=== PATIENT | male | born 1960 | race Hispanic/Latino ===

== ENCOUNTER 2024-03-09 17:07 | Inpatient (IN) | payer BC ==
[~2024-03-09] VITALS: Ht 175.3 cm; Wt 117.9 kg
[~2024-03-09 17:07] MED LIST: ATORVASTATIN CA20 MG PO; B-121000 MC2; GLIPIZIDE ER5 MG PO; LISINOPRIL10 MG PO; MOUNJARO5 MG/0.5 M SQ; ONE DAILY MEN'1 EACH; TURMERIC CURCU1 EACH; VITAMIN E1000 UNI1
[2024-03-09 17:34] VITALS: PULSE 87; RESP 19; TEMP 103
[2024-03-09 18:11] LABS: BASOPHILS # (AUTO) 0.1 (0.0-0.1); BASOPHILS % 0.3 % (0.0-1.0); EOSINOPHILS # (AUTO) 0.1 (0.0-0.4); EOSINOPHILS % 0.3 % (0.0-6.0); HEMATOCRIT 35.1 % (38.2-49.6); HEMOGLOBIN 11.3 g/dL (14.0-18.0); LYMPHOCYTES # (AUTO) 0.7 (1.0-3.2); LYMPHOCYTES % 4.4 % (18.0-39.1); MEAN CORPUSCULAR HGB CONC 32.2 g/dL (31-35); MEAN CORPUSCULAR VOLUME 90.2 fL (81-99); MONOCYTES # (AUTO) 1.3 (0.2-0.8); MONOCYTES % 7.8 % (4.4-11.3); NEUTROPHILS # (AUTO) 14.2 (2.1-6.9); NEUTROPHILS % 86.8 % (38.7-80.0); PLATELET COUNT 258 x10e3/uL (140-360); RED BLOOD COUNT 3.89 x10e6/uL (4.3-5.7); WHITE BLOOD COUNT 16.38 x10e3/uL (4.8-10.8)
[2024-03-09 18:29] LABS: ALBUMIN 2.5 g/dL (3.5-5.0); ALBUMIN/GLOBULIN RATIO 0.5 (0.8-2.0); ANION GAP 14.3 mmol/L (8-16); BILIRUBIN,TOTAL 0.6 mg/dL (0.2-1.2); CREATININE, SERUM 1.46 mg/dL (0.72-1.25); POTASSIUM 4.3 mmol/L (3.5-5.1); TOTAL PROTEIN 7.3 g/dL (6.5-8.1)
[2024-03-09] MEDS ORDERED: PIPERACILLIN/TAZOBACTAM 3.375 GM VIAL ONE (18:31)
[2024-03-09] MEDS: Vancomycin IV 1 GM in SODIUM CHLORIDE 0.9% 250ML 250 ML IV SCH (18:39)
[2024-03-09] MEDS: SODIUM CHLORIDE 0.9% 1000ML 1,000 ML IV ONE ×2 (18:39→20:44)
[2024-03-09] MEDS: ACETAMINOPHEN 325 MG TAB PO ONE (18:40)
[2024-03-09] MEDS ORDERED: DEXTROSE 50% SYRINGE 50 ML IV PRN (18:45)
[2024-03-09] MEDS ORDERED: Morphine 4mg INJECTION 4 MG/ML INJ IV PRN (18:45)
[2024-03-09] MEDS ORDERED: ONDANSETRON HCL INJ 2MG/ML 2ML 2 MG/ML VIAL IV PRN (18:45)
[2024-03-09 20:03] VITALS: BP 129/64; PULSE 75; RESP 19; TEMP 98.1; O2SAT 96
[2024-03-09 20:05] VITALS: PULSE 76; RESP 18; O2SAT 99
[2024-03-09 21:00] VITALS: BP_SYST 109; BP_SYST 129; BP_DIAS 64; BP_DIAS 75; PULSE 76; RESP 19; TEMP 100.8; TEMP 98.1; O2SAT 99
[2024-03-09] MEDS: INSULIN REGULAR, HUMAN 100 UNIT/1 ML SQ SCH (21:00)
[2024-03-10] VITALS (8 sets, daily range): BP systolic 124–172; BP diastolic 74–85; PULSE 71–80; RESP 17–18; TEMP 97.5–98.8; O2SAT 96–100
[2024-03-10 05:47] LABS: BASOPHILS # (AUTO) 0.1 (0.0-0.1); BASOPHILS % 0.5 % (0.0-1.0); EOSINOPHILS # (AUTO) 0.4 (0.0-0.4); EOSINOPHILS % 2.5 % (0.0-6.0); HEMATOCRIT 32.3 % (38.2-49.6); HEMOGLOBIN 10.6 g/dL (14.0-18.0); LYMPHOCYTES # (AUTO) 1.4 (1.0-3.2); LYMPHOCYTES % 8.8 % (18.0-39.1); MEAN CORPUSCULAR HEMOGLOBIN 28.8 pg (28-32); MEAN CORPUSCULAR HGB CONC 32.8 g/dL (31-35); MEAN CORPUSCULAR VOLUME 87.8 fL (81-99); MONOCYTES # (AUTO) 1.4 (0.2-0.8); MONOCYTES % 8.5 % (4.4-11.3); NEUTROPHILS # (AUTO) 12.7 (2.1-6.9); NEUTROPHILS % 79.2 % (38.7-80.0); PLATELET COUNT 267 x10e3/uL (140-360); RED BLOOD COUNT 3.68 x10e6/uL (4.3-5.7); WHITE BLOOD COUNT 16.08 x10e3/uL (4.8-10.8)
[2024-03-10 06:17] LABS: ALBUMIN 2.3 g/dL (3.5-5.0); ALBUMIN/GLOBULIN RATIO 0.5 (0.8-2.0); ANION GAP 11.9 mmol/L (8-16); BILIRUBIN,TOTAL 0.6 mg/dL (0.2-1.2); CALCIUM 8.7 mg/dL (8.4-10.2); CREATININE, SERUM 1.25 mg/dL (0.72-1.25); POTASSIUM 3.9 mmol/L (3.5-5.1); TOTAL PROTEIN 6.8 g/dL (6.5-8.1)
[2024-03-10] MEDS: ACETAMINOPHEN 325 MG TAB PO PRN (06:18)
[2024-03-10 06:24] LABS: BILIRUBIN,URINE NEGATIVE (NEGATIVE); CLARITY,URINE CLOUDY (CLEAR); COLOR,URINE YELLOW (YELLOW); GLUCOSE, URINE NEGATIVE (NEGATIVE); KETONES,URINE NEGATIVE (NEGATIVE); LEUKOCYTE ESTERASE ,URINE NEGATIVE (NEGATIVE); NITRITE,URINE NEGATIVE (NEGATIVE); PH,URINE 5.5 (5 - 7); PROTEIN,URINE DIPSTICK >=300 (NEGATIVE); URINE UROBILINOGEN 0.2 mg/dL (0.2 - 1)
[2024-03-10 06:47] LABS: BACTERIA,URINE MODERATE /HPF; EPITHELIAL CELLS,URINE RARE /LPF; RBC,URINE 0-5 /HPF (0-5)
[2024-03-10 11:01] LABS: CHOL/HDL RATIO 4.5 (3.9-4.7)
[2024-03-10 11:27] LABS: FERRITIN 1314.45 ng/mL (21.81-274.66)
[2024-03-10 11:51] LABS: FOLATE 14.2 ng/mL (7.0-15.4)
[2024-03-10] MEDS: ATORVASTATIN 40 MG TAB PO SCH (21:12)
[2024-03-11] VITALS (8 sets, daily range): BP systolic 146–171; BP diastolic 77–82; PULSE 66–80; RESP 17–21; TEMP 97.8–98.4; O2SAT 98–100
[2024-03-11 05:46] LABS: BASOPHILS # (AUTO) 0.1 (0.0-0.1); BASOPHILS % 0.6 % (0.0-1.0); EOSINOPHILS # (AUTO) 0.5 (0.0-0.4); EOSINOPHILS % 4.4 % (0.0-6.0); HEMATOCRIT 30.3 % (38.2-49.6); LYMPHOCYTES # (AUTO) 1.1 (1.0-3.2); LYMPHOCYTES % 10.6 % (18.0-39.1); MEAN CORPUSCULAR HEMOGLOBIN 28.7 pg (28-32); MEAN CORPUSCULAR VOLUME 86.8 fL (81-99); MONOCYTES # (AUTO) 0.8 (0.2-0.8); MONOCYTES % 7.2 % (4.4-11.3); NEUTROPHILS # (AUTO) 8.2 (2.1-6.9); NEUTROPHILS % 76.5 % (38.7-80.0); PLATELET COUNT 252 x10e3/uL (140-360); RED BLOOD COUNT 3.49 x10e6/uL (4.3-5.7); RED CELL DISTRIBUTION WIDTH 12.1 % (11.7-14.4); WHITE BLOOD COUNT 10.69 x10e3/uL (4.8-10.8)
[2024-03-11 06:18] LABS: ALBUMIN/GLOBULIN RATIO 0.5 (0.8-2.0); ANION GAP 12.9 mmol/L (8-16); BILIRUBIN,TOTAL 0.5 mg/dL (0.2-1.2); CALCIUM 8.4 mg/dL (8.4-10.2); CREATININE, SERUM 1.24 mg/dL (0.72-1.25); POTASSIUM 3.9 mmol/L (3.5-5.1); TOTAL PROTEIN 6.2 g/dL (6.5-8.1)
[2024-03-11 06:36] LABS: CHOL/HDL RATIO 5.2 (3.9-4.7)
[2024-03-11 06:56] LABS: THYROID STIMULATING HORMONE 0.766 uIU/mL (0.350-4.940)
[2024-03-11] MEDS: LISINOPRIL 20 MG TAB PO SCH (08:05)
[2024-03-11] MEDS: ASPIRIN 81 MG ENTERIC COATED PO ONE (09:38)
[2024-03-11] MEDS: ENOXAPARIN SOD INJ 40 MG/0.4 ML SYR SC SCH (16:53)
[2024-03-11] MEDS ORDERED: Vancomycin IV 1 GM in SODIUM CHLORIDE 0.9% 250ML 250 ML IV SCH (20:00)
[2024-03-12 00:18] VITALS: BP 175/84; PULSE 73; RESP 18; TEMP 98.2; O2SAT 100
[2024-03-12] MEDS: HYDRALAZINE HCL 20 MG/ML VIAL IV PRN (01:10)
[2024-03-12 04:00] VITALS: BP 162/75; PULSE 76; RESP 18; TEMP 97.8; O2SAT 100
[2024-03-12 05:38] LABS: BASOPHILS # (AUTO) 0.1 (0.0-0.1); BASOPHILS % 0.8 % (0.0-1.0); EOSINOPHILS # (AUTO) 0.6 (0.0-0.4); EOSINOPHILS % 6.3 % (0.0-6.0); HEMATOCRIT 30.2 % (38.2-49.6); HEMOGLOBIN 9.9 g/dL (14.0-18.0); LYMPHOCYTES # (AUTO) 1.5 (1.0-3.2); LYMPHOCYTES % 16.1 % (18.0-39.1); MEAN CORPUSCULAR HEMOGLOBIN 28.4 pg (28-32); MEAN CORPUSCULAR HGB CONC 32.8 g/dL (31-35); MEAN CORPUSCULAR VOLUME 86.8 fL (81-99); MONOCYTES # (AUTO) 0.6 (0.2-0.8); MONOCYTES % 6.8 % (4.4-11.3); NEUTROPHILS # (AUTO) 6.3 (2.1-6.9); NEUTROPHILS % 69.2 % (38.7-80.0); PLATELET COUNT 279 x10e3/uL (140-360); RED BLOOD COUNT 3.48 x10e6/uL (4.3-5.7); RED CELL DISTRIBUTION WIDTH 12.2 % (11.7-14.4); WHITE BLOOD COUNT 9.14 x10e3/uL (4.8-10.8)
[2024-03-12 05:57] LABS: ANION GAP 14.8 mmol/L (8-16); CALCIUM 8.6 mg/dL (8.4-10.2); CREATININE, SERUM 1.22 mg/dL (0.72-1.25); POTASSIUM 3.8 mmol/L (3.5-5.1)
[2024-03-12 08:18] VITALS: BP 164/87; PULSE 66; RESP 20; TEMP 98.1; O2SAT 100
[2024-03-12] MEDS ORDERED: IOPAMIDOL 370 MG/ML 100 ML INFUS..BTL INJ ONE (10:49)
[2024-03-12] MEDS ORDERED: SODIUM CHLORIDE 0.9% 100 ML ONE (10:49)
[2024-03-12] MEDS: SODIUM CHLORIDE 0.9% 1000ML 1,000 ML IV SCH (16:23)
[2024-03-12 17:23] VITALS: BP 169/76; PULSE 68; RESP 18; TEMP 97.6; O2SAT 98
[2024-03-12 19:42] VITALS: BP 177/76; PULSE 71; RESP 18; TEMP 98.6; O2SAT 99
[2024-03-12 21:00] VITALS: BP 177/76; PULSE 71; RESP 18; TEMP 98.6; O2SAT 99
[2024-03-13] VITALS (7 sets, daily range): BP systolic 139–197; BP diastolic 78–88; PULSE 62–77; RESP 18–20; TEMP 98.1–99; O2SAT 99–100
[2024-03-13 06:51] LABS: BASOPHILS # (AUTO) 0.1 (0.0-0.1); BASOPHILS % 0.7 % (0.0-1.0); EOSINOPHILS # (AUTO) 0.4 (0.0-0.4); EOSINOPHILS % 4.9 % (0.0-6.0); HEMATOCRIT 31.5 % (38.2-49.6); HEMOGLOBIN 10.5 g/dL (14.0-18.0); LYMPHOCYTES # (AUTO) 1.6 (1.0-3.2); LYMPHOCYTES % 19.5 % (18.0-39.1); MEAN CORPUSCULAR HEMOGLOBIN 29.1 pg (28-32); MEAN CORPUSCULAR HGB CONC 33.3 g/dL (31-35); MEAN CORPUSCULAR VOLUME 87.3 fL (81-99); MONOCYTES # (AUTO) 0.6 (0.2-0.8); MONOCYTES % 7.1 % (4.4-11.3); NEUTROPHILS # (AUTO) 5.5 (2.1-6.9); NEUTROPHILS % 66.7 % (38.7-80.0); PLATELET COUNT 332 x10e3/uL (140-360); RED BLOOD COUNT 3.61 x10e6/uL (4.3-5.7); RED CELL DISTRIBUTION WIDTH 12.2 % (11.7-14.4); WHITE BLOOD COUNT 8.22 x10e3/uL (4.8-10.8)
[2024-03-13 07:04] LABS: ALBUMIN 2.3 g/dL (3.5-5.0); ALBUMIN/GLOBULIN RATIO 0.5 (0.8-2.0); ANION GAP 12.2 mmol/L (8-16); BILIRUBIN,TOTAL 0.3 mg/dL (0.2-1.2); CALCIUM 8.7 mg/dL (8.4-10.2); CREATININE, SERUM 1.2 mg/dL (0.72-1.25); POTASSIUM 4.2 mmol/L (3.5-5.1); TOTAL PROTEIN 6.8 g/dL (6.5-8.1)
[2024-03-13 09:12] LABS: EOSINOPHILS % (MANUAL) 1 % (0-7); LYMPHOCYTES % (MANUAL) 21 % (19-48); MONOCYTES % (MANUAL) 6 % (3.4-9.0); NEUTROPHILS % (MANUAL) 72 % (40-74); PLATELET ESTIMATE ADEQUATE; PLATELET MORPHOLOGY COMMENT NORMAL
[2024-03-13] MEDS: GLIPIZIDE 5 MG TAB ER PO SCH (09:37)
[2024-03-13] MEDS: AMLODIPINE BESYLATE 5 MG TAB PO SCH (09:38)
[2024-03-13] MEDS: ASPIRIN 81 MG ENTERIC COATED PO SCH (09:39)
[2024-03-13] MEDS: Vancomycin IV 1 GM in SODIUM CHLORIDE 0.9% 250ML 250 ML IV SCH (15:37)
[2024-03-14] VITALS (8 sets, daily range): BP systolic 148–173; BP diastolic 72–85; PULSE 69–78; RESP 18–20; TEMP 97.6–98.7; O2SAT 98–100
[2024-03-14] MEDS: MEROPENEM 1 GM in SODIUM CHLORIDE 0.9% 100 ML IV SCH (13:10)
[2024-03-15] VITALS: BP 164/69; PULSE 80; RESP 20; TEMP 98.4; O2SAT 100
[2024-03-15 04:00] VITALS: BP 192/87; PULSE 80; RESP 20; TEMP 98.3; O2SAT 100
[2024-03-15 06:44] LABS: BASOPHILS # (AUTO) 0.1 (0.0-0.1); BASOPHILS % 0.6 % (0.0-1.0); EOSINOPHILS # (AUTO) 0.4 (0.0-0.4); EOSINOPHILS % 4.5 % (0.0-6.0); HEMATOCRIT 31.8 % (38.2-49.6); HEMOGLOBIN 10.4 g/dL (14.0-18.0); LYMPHOCYTES # (AUTO) 1.4 (1.0-3.2); LYMPHOCYTES % 17.4 % (18.0-39.1); MEAN CORPUSCULAR HEMOGLOBIN 28.9 pg (28-32); MEAN CORPUSCULAR HGB CONC 32.7 g/dL (31-35); MEAN CORPUSCULAR VOLUME 88.3 fL (81-99); MONOCYTES # (AUTO) 0.6 (0.2-0.8); MONOCYTES % 7.4 % (4.4-11.3); NEUTROPHILS # (AUTO) 5.5 (2.1-6.9); NEUTROPHILS % 69.1 % (38.7-80.0); PLATELET COUNT 314 x10e3/uL (140-360); RED CELL DISTRIBUTION WIDTH 12.4 % (11.7-14.4); WHITE BLOOD COUNT 7.94 x10e3/uL (4.8-10.8)
[2024-03-15 07:02] LABS: CALCIUM 8.6 mg/dL (8.4-10.2); CREATININE, SERUM 0.95 mg/dL (0.72-1.25)
[2024-03-15] MEDS: HYDROCHLOROTHIAZIDE 25 MG TAB PO SCH (07:58)
[2024-03-15] MEDS: AMLODIPINE BESYLATE 10 MG TAB PO SCH (07:59)
[2024-03-15 08:56] VITALS: BP 192/87; PULSE 80; RESP 20; TEMP 98.3; O2SAT 100
[2024-03-15 12:10] VITALS: BP 165/68; PULSE 81; RESP 16; TEMP 98.4; O2SAT 99
[2024-03-15 20:00] VITALS: BP 162/79; PULSE 80; RESP 18; TEMP 98.6; O2SAT 98
[2024-03-16] VITALS: BP 159/92; PULSE 74; RESP 20; TEMP 98.4; O2SAT 100
[2024-03-16 04:00] VITALS: BP 179/86; PULSE 77; RESP 20; TEMP 97.5; O2SAT 100
[2024-03-16 04:33] LABS: BASOPHILS # (AUTO) 0.1 (0.0-0.1); BASOPHILS % 0.6 % (0.0-1.0); EOSINOPHILS # (AUTO) 0.5 (0.0-0.4); EOSINOPHILS % 5.2 % (0.0-6.0); HEMATOCRIT 33.9 % (38.2-49.6); HEMOGLOBIN 10.5 g/dL (14.0-18.0); LYMPHOCYTES # (AUTO) 1.7 (1.0-3.2); LYMPHOCYTES % 19.2 % (18.0-39.1); MEAN CORPUSCULAR HEMOGLOBIN 28.5 pg (28-32); MONOCYTES # (AUTO) 0.7 (0.2-0.8); MONOCYTES % 7.6 % (4.4-11.3); NEUTROPHILS # (AUTO) 5.8 (2.1-6.9); NEUTROPHILS % 66.3 % (38.7-80.0); PLATELET COUNT 327 x10e3/uL (140-360); RED BLOOD COUNT 3.69 x10e6/uL (4.3-5.7); RED CELL DISTRIBUTION WIDTH 12.5 % (11.7-14.4); WHITE BLOOD COUNT 8.73 x10e3/uL (4.8-10.8)
[2024-03-16 04:39] LABS: MEAN CORPUSCULAR VOLUME 91.9 fL (81-99)
[2024-03-16 04:47] LABS: ALBUMIN 2.5 g/dL (3.5-5.0); ALBUMIN/GLOBULIN RATIO 0.6 (0.8-2.0); ANION GAP 13.1 mmol/L (8-16); BILIRUBIN,TOTAL 0.4 mg/dL (0.2-1.2); CALCIUM 8.5 mg/dL (8.4-10.2); CREATININE, SERUM 1.17 mg/dL (0.72-1.25); POTASSIUM 4.1 mmol/L (3.5-5.1)
[2024-03-16 07:28] VITALS: BP 149/76; PULSE 79; RESP 20; TEMP 97.8; O2SAT 100
[2024-03-16] MEDS: CARVEDILOL 12.5 MG TAB PO SCH (09:30)
[2024-03-16 11:28] VITALS: BP 161/78; PULSE 77; RESP 18; TEMP 98.1; O2SAT 99
[2024-03-16 16:00] VITALS: BP 144/69; PULSE 72; RESP 19; TEMP 97.9; O2SAT 99
[2024-03-16] MEDS ORDERED: ESIDRIX25 MG PO (16:31)
[2024-03-16] MEDS ORDERED: CARVEDILOL6.25 MG PO (16:31)
[2024-03-16] MEDS ORDERED: ATORVASTATIN CA40 MG PO (16:31)
[2024-03-16] MEDS ORDERED: ASPIRIN EC81 MG PO (16:31)
[2024-03-16] MEDS ORDERED: MOUNJARO2.5 MG/0.5 SC (16:31)
[2024-03-16] MEDS ORDERED: NORVASC10 MG PO (16:31)
[2024-03-16 16:34] VITALS: BP 144/69; PULSE 72
[2024-03-16] MEDS ORDERED: ONDANSETRON HCL 4 MG ORAL DISINTEGRATING TAB PO PRN (17:45)
== END 2024-03-16 18:27 | disposition home or self-care (01) | DRG 623 ==
LOC: ER 17:45 → ERHOLD 18:46 → MED/SURG2 20:08
PROVIDERS: ADMIT Internal Medicine; ATTEND Internal Medicine
PROC: 0JBR0ZZ Excision of Left Foot Subcutaneous Tissue and Fascia, Open Approach (ICD-10-PCS; principal; 2024-03-12)
PROC: 02HV33Z Insertion of Infusion Device into Superior Vena Cava, Percutaneous Approach (ICD-10-PCS; 2024-03-12)
DX: E11.621 Type 2 diabetes mellitus with foot ulcer (principal); A52.16 Charcot's arthropathy (tabetic); L03.116 Cellulitis of left lower limb; M86.172 Other acute osteomyelitis, left ankle and foot; Z16.29 Resistance to other single specified antibiotic; L97.528 Non-pressure chronic ulcer of other part of left foot with other specified severity; B96.5 Pseudomonas (aeruginosa) (mallei) (pseudomallei) as the cause of diseases classified elsewhere; B95.61 Methicillin susceptible Staphylococcus aureus infection as the cause of diseases classified elsewhere; E11.610 Type 2 diabetes mellitus with diabetic neuropathic arthropathy; E11.42 Type 2 diabetes mellitus with diabetic polyneuropathy; E11.51 Type 2 diabetes mellitus with diabetic peripheral angiopathy without gangrene; E11.69 Type 2 diabetes mellitus with other specified complication; I10 Essential (primary) hypertension; E78.5 Hyperlipidemia, unspecified; E66.9 Obesity, unspecified; G47.33 Obstructive sleep apnea (adult) (pediatric); Z68.38 Body mass index [BMI] 38.0-38.9, adult; Z79.84 Long term (current) use of oral hypoglycemic drugs; Z79.85 Long-term (current) use of injectable non-insulin antidiabetic drugs; Z89.011 Acquired absence of right thumb; Z88.8 Allergy status to other drugs, medicaments and biological substances; Z82.49 Family history of ischemic heart disease and other diseases of the circulatory system; Z83.3 Family history of diabetes mellitus
CPT/HCPCS: 36415; 36569; 71045; 73706; 80048; 80053; 80061; 80202; 81001; 82607; 82728; 82746; 82948; 83036; 83540; 83605; 83735; 84443; 84466; 85025; 85045; 87040; 87071; 87086; 87186; 87205; 93005; 93306; 93925; 94799; 96372; 97606; 99252; 99284; J0360; J1650; J2185; J2543; J7030; J7050; Q9967

== ENCOUNTER → 2024-03-17 | Outpatient (REF) | payer BC ==
[~2024-03-17] MED LIST changes: +ASPIRIN EC81 MG PO; +ATORVASTATIN CA40 MG PO; +CARVEDILOL6.25 MG PO; +ESIDRIX25 MG PO; +MOUNJARO2.5 MG/0.5 SC; +NORVASC10 MG PO
== END ==
LOC: WCC 13:59
PROVIDERS: ATTEND Nurse Practitioner Family
DX: E11.621 Type 2 diabetes mellitus with foot ulcer (principal); L97.426 Non-pressure chronic ulcer of left heel and midfoot with bone involvement without evidence of necrosis; L97.422 Non-pressure chronic ulcer of left heel and midfoot with fat layer exposed

== ENCOUNTER → 2024-04-03 | Outpatient (REF) | payer BC ==
[~2024-04-03] MED LIST changes: +MINERAL OIL/PETROLAT/GLYCERI 6OZ BTL ONE
== END ==
LOC: WCC 12:18
PROVIDERS: ATTEND Internal Medicine Infectious Disease
DX: E11.621 Type 2 diabetes mellitus with foot ulcer (principal); L97.426 Non-pressure chronic ulcer of left heel and midfoot with bone involvement without evidence of necrosis; L97.422 Non-pressure chronic ulcer of left heel and midfoot with fat layer exposed

== ENCOUNTER → 2024-04-08 | Outpatient (REF) | payer BC ==
[~2024-04-08] MED LIST changes: -MINERAL OIL/PETROLAT/GLYCERI 6OZ BTL ONE
== END ==
LOC: WCC 12:12
PROVIDERS: ATTEND Nurse Practitioner Family
DX: E11.621 Type 2 diabetes mellitus with foot ulcer (principal); L97.426 Non-pressure chronic ulcer of left heel and midfoot with bone involvement without evidence of necrosis; L97.422 Non-pressure chronic ulcer of left heel and midfoot with fat layer exposed; R60.1 Generalized edema

== ENCOUNTER → 2024-04-17 | Outpatient (REF) | payer BC | LOC: WCC 12:29 | PROVIDERS: ATTEND Internal Medicine Infectious Disease | DX: E11.621 Type 2 diabetes mellitus with foot ulcer (principal); L97.426 Non-pressure chronic ulcer of left heel and midfoot with bone involvement without evidence of necrosis; L97.422 Non-pressure chronic ulcer of left heel and midfoot with fat layer exposed ==

== ENCOUNTER → 2024-04-24 | Outpatient (REF) | payer BC | LOC: WCC 12:24 | PROVIDERS: ATTEND Internal Medicine Infectious Disease | DX: E11.621 Type 2 diabetes mellitus with foot ulcer (principal); L97.426 Non-pressure chronic ulcer of left heel and midfoot with bone involvement without evidence of necrosis; L97.422 Non-pressure chronic ulcer of left heel and midfoot with fat layer exposed ==

== ENCOUNTER → 2024-05-01 | Outpatient (REF) | payer BC | LOC: WCC 09:45 | PROVIDERS: ATTEND Plastic Surgery | DX: E11.621 Type 2 diabetes mellitus with foot ulcer (principal); L97.426 Non-pressure chronic ulcer of left heel and midfoot with bone involvement without evidence of necrosis; L97.422 Non-pressure chronic ulcer of left heel and midfoot with fat layer exposed ==

== ENCOUNTER → 2024-05-08 | Outpatient (REF) | payer BC | LOC: WCC 12:42 | PROVIDERS: ATTEND Internal Medicine Infectious Disease | DX: E11.621 Type 2 diabetes mellitus with foot ulcer (principal); L97.422 Non-pressure chronic ulcer of left heel and midfoot with fat layer exposed ==

== ENCOUNTER → 2024-05-15 | Outpatient (REF) | payer BC ==
[~2024-05-15] MED LIST changes: +MINERAL OIL/PETROLAT/GLYCERI 6OZ BTL ONE
== END ==
LOC: WCC 12:03
PROVIDERS: ATTEND Internal Medicine Infectious Disease
DX: E11.621 Type 2 diabetes mellitus with foot ulcer (principal); L97.426 Non-pressure chronic ulcer of left heel and midfoot with bone involvement without evidence of necrosis; L97.422 Non-pressure chronic ulcer of left heel and midfoot with fat layer exposed

== ENCOUNTER → 2024-05-22 | Outpatient (REF) | payer BC | LOC: WCC 11:55 | PROVIDERS: ATTEND Internal Medicine Infectious Disease | DX: E11.621 Type 2 diabetes mellitus with foot ulcer (principal); L97.426 Non-pressure chronic ulcer of left heel and midfoot with bone involvement without evidence of necrosis; L97.422 Non-pressure chronic ulcer of left heel and midfoot with fat layer exposed; R60.1 Generalized edema ==

== ENCOUNTER → 2024-06-19 | Outpatient (RCR) | payer MEDICARE, BC | LOC: WCC 05-25 13:00 | PROVIDERS: ATTEND Nurse Practitioner Family | DX: E11.621 Type 2 diabetes mellitus with foot ulcer (principal); L97.426 Non-pressure chronic ulcer of left heel and midfoot with bone involvement without evidence of necrosis; L97.422 Non-pressure chronic ulcer of left heel and midfoot with fat layer exposed; R60.1 Generalized edema ==

== ENCOUNTER 2024-07-17 13:58 | Outpatient (RCR) | payer MEDICARE, BC ==
[~2024-07-17 13:58] MED LIST changes: -MINERAL OIL/PETROLAT/GLYCERI 6OZ BTL ONE
== END 2024-07-20 ==
LOC: WCC 13:58
PROVIDERS: ATTEND Nurse Practitioner Family
DX: E11.621 Type 2 diabetes mellitus with foot ulcer (principal); L97.426 Non-pressure chronic ulcer of left heel and midfoot with bone involvement without evidence of necrosis

== ENCOUNTER 2024-08-14 11:49 | Outpatient (RCR) | payer MEDICARE, BC ==
[~2024-08-14 11:49] MED LIST changes: +BALSAM PERU/CASTOR OIL 28.35 GM OINT...G. TP ONE; +MINERAL OIL/PETROLAT/GLYCERI 6OZ BTL ONE; +TRYPSIN/BALSAM PERU/CASTOR OIL ONE
== END 2024-08-19 ==
LOC: WCC 11:49
PROVIDERS: ATTEND Plastic Surgery
DX: E11.621 Type 2 diabetes mellitus with foot ulcer (principal); L97.426 Non-pressure chronic ulcer of left heel and midfoot with bone involvement without evidence of necrosis